=== PATIENT | female | born 1955 | race African-American/Black ===

== ENCOUNTER 2017-03-05 09:11 | Emergency (ER) | payer OTHER ==
--- NOTE | 2017-03-05 09:23 | PDOC ---
History of Present Illness - General Stated Complaint: RECTAL BLEED Time Seen by Provider: 03/05/17 09:22 - History of Present Illness Initial Comments: 03/05/17 09:22 Ms. Seth is a 61 yo female with a significant past medical history of occasional HTN who presents to the emergency department following a single episode of bloody diarrhea. She reports this is the first time this has ever happened and that she is currently experiencing no pain. Reports the stool was loose with red blood intermixed. The patient denies chest pain, shortness of breath, headache and dizziness. Denies fever, chills, nausea, vomit, and constipation. Denies dysuria, frequency , urgency and hematuria. Allergies: NKDA Past surgical history: Denies Past History - Past Medical History Allergies/Adverse Reactions: Allergies Allergy/AdvReac Type Severity Reaction Status Date / Time No Known Allergies Allergy Verified 03/05/17 09:33 Home Medications: Ambulatory Orders No Known Home Medication 03/05/17 Review of Systems - Review of Systems Comments:: 03/05/17 09:23 GENERAL/CONSTITUTIONAL: No fever or chills. No weakness. HEAD, EYES, EARS, NOSE AND THROAT: No change in vision. No ear pain or discharge. No sore throat. CARDIOVASCULAR: No chest pain or shortness of breath RESPIRATORY: No cough, wheezing, or hemoptysis. GASTROINTESTINAL: +Diarrhea with red blood mixed in. No nausea, no vomiting, or constipation. GENITOURINARY: No dysuria, frequency, or change in urination. MUSCULOSKELETAL: No joint or muscle swelling or pain. No neck or back pain. SKIN: No rash NEUROLOGIC: No headache, vertigo, loss of consciousness, or change in strength/ sensation. ENDOCRINE: No increased thirst. No abnormal weight change HEMATOLOGIC/LYMPHATIC: No anemia, easy bleeding, or history of blood clots. ALLERGIC/IMMUNOLOGIC: No hives or skin allergy. *Physical Exam - Physical Exam Comments: 03/05/17 09:23 GENERAL: Awake, alert, and fully oriented, in no acute distress HEAD: No signs of trauma, normocephalic, atraumatic EYES: PERRLA, EOMI, sclera anicteric, conjunctiva clear ENT: Auricles normal inspection, hearing grossly normal, nares patent, oropharynx clear without exudates. Moist mucosa NECK: Normal ROM, supple, no lymphadenopathy, JVD, or masses LUNGS: No distress, speaks full sentences, clear to auscultation bilaterally HEART: Regular rate and rhythm, normal S1 and S2, no murmurs, rubs or gallops, peripheral pulses normal and equal bilaterally. ABDOMEN: Soft, nontender, normoactive bowel sounds. No guarding, no rebound. No masses EXTREMITIES: Normal inspection, Normal range of motion, no edema. No clubbing or cyanosis. NEUROLOGICAL: Cranial nerves II through XII grossly intact. Normal speech, normal gait, no focal sensorimotor deficits SKIN: Warm, Dry, normal turgor, no rashes or lesions noted. ED Treatment Course - LABORATORY CBC & Chemistry Diagram: 03/05/17 10:00 03/05/17 10:00 Medical Decision Making - Medical Decision Making 03/05/17 10:15 Patient had bowel movement examined by physician while in ER. Small amount, brown, with minimal dark red blood associated/mixed with stool. No blood in water of bowl. Rectal exam negative for hemmorhoids but small amount of bloody material noted on glove with postive stool for occult blood. Patient currently resting comfortably with grossly normal labs as below. Will follow-up outpatient this week. Advised to return if any exacerbation of symptoms, pain, or other concerning developments. *DC/Admit/Observation/Transfer Diagnosis at time of Disposition: Blood in stool - Discharge Dispostion Disposition: HOME - Referrals Referrals: Trever Alcantara MD [Primary Care Provider] - Mason Mccord DO [Staff Physician] - - Patient Instructions Printed Discharge Instructions: DI for Rectal Bleeding
[2017-03-05 09:33] VITALS: PULSE 80; TEMP 98.3; BMI 26.6
[2017-03-05 10:14] LABS: BASOPHIL 1.3 % (0-2.0); EOSINOPHIL 2.5 % (0-4.5); MCHC 32.7 g/dl (32.0-36.0); MEAN CELL VOLUME 100.8 fl (80-96); MEAN PLT VOLUME 8.5 fl (7.5-11.1); NEUTROPHILS 49.5 % (42.8-82.8); PLATELET COUNT 242 K/MM3 (134-434); RDW 13.2 % (11.6-15.6); WHITE BLOOD COUNT 5.3 K/mm3 (4.0-10.0)
--- NOTE | 2017-03-05 10:30 | PDOC ---
Attending Attestation - Resident Resident Name: Delvin Villanueva - ED Attending Attestation I have performed the following: I have examined & evaluated the patient, The case was reviewed & discussed with the resident, I agree w/resident's findings & plan, Exceptions are as noted - HPI HPI: 03/05/17 10:27 61y F hx of htn (now controlled w/o meds) presents with compaint of rectal bleeding. pt notes that she had 2 bms that had blood mixed with stool, no melena, abd pain, fever/chills, cp, sob, dizziness. on exam pt appears well, with a soft nontender abdomen. no a/c use beside occaisonal motrin suspect LGIB - exact cause unclear - ?diverticular vs. internal hemorroid will obtain stool guaiac, labs/hbg will reassess if no further blood bms, or minimal blood, and hbg normal, will dc with GI fu 03/05/17 10:45 pts labs reviewed and is unremarkable although her guaiac pwas positive bun also normal pt had a bm here that was mostly brown but had some redness on the lateral aspect - suspect possible internal hemorroid will have pt fu with GI return precautions were discussed - Physicial Exam PE: 03/05/17 18:47 see abve - Medical Decision Making 03/05/17 18:47 see above
[2017-03-05 10:34] LABS: ALBUMIN 3.1 g/dl (3.4-5.0); ALK PHOS 82 U/L (45-117); ANION GAP 4 (8-16); BILIRUBIN,TOTAL 0.6 mg/dL (0.2-1.0); CALCIUM 8.4 mg/dL (8.5-10.1); CO2 27 mmol/L (21-32); CREATININE 1.2 mg/dL (0.55-1.02); GLUCOSE,RANDOM 124 mg/dL (74-106); SGPT/ALT 30 U/L (12-78); TOT PROT 7.2 g/dl (6.4-8.2)
[2017-03-05 10:39] LABS: SGOT/AST 37 U/L (15-37)
[2017-03-05 11:15] VITALS: BP 130/90
== END 2017-03-05 11:15 | disposition home or self-care (01) ==
LOC: JER 09:11
DX: K92.1 Melena (principal); I10 Essential (primary) hypertension
CPT/HCPCS: 36415; 80053; 82272; 85025; 99282-25

== ENCOUNTER 2017-03-10 10:10 | Emergency (ER) | payer OTHER ==
--- NOTE | 2017-03-10 10:22 | PDOC ---
History of Present Illness <Slade Coleman - Last Filed: 03/10/17 11:12> - General History Source: Patient Exam Limitations: No Limitations - History of Present Illness Initial Comments: 03/10/17 10:56 03/10/17 10:59 Patient is a 61 year old female with PMHx of HTN and asthma who presents with BRBPR today. She reports diarrhea mixed with dark red stool. She also notes dime sized clots in the toilet bowl. Patient was evaluated in the ED last week for a similar episode. She had a positive occult stool at that time and was referred to GI but has not been able to get an appointment. She has never had a colonoscopy before and denies any family history of colon cancer. She also denies any history of hemorrhoids. Patient denies any rectal pain, abdominal pain, nausea, vomiting, constipation, dysuria, urinary frequency, fevers, chills , lightheadedness, or weight loss. 03/10/17 11:04 <Poncho Garcia - Last Filed: 03/10/17 12:39> - General Chief Complaint: Rectal Bleed Stated Complaint: BLOOD IN STOOL Time Seen by Provider: 03/10/17 10:17 Past History <Slade Coleman - Last Filed: 03/10/17 11:12> - Past Medical History Asthma: Yes (Inhalers as needed) HTN: Yes (No Pharmacologic RX) - Suicide/Smoking/Psychosocial Hx Smoking History: Current every day smoker Number of Cigarettes Smoked Daily: 7 Hx Alcohol Use: Yes Drug/Substance Use Hx: No <Poncho Garcia - Last Filed: 03/10/17 12:39> - Past Medical History Allergies/Adverse Reactions: Allergies Allergy/AdvReac Type Severity Reaction Status Date / Time No Known Allergies Allergy Verified 03/10/17 10:49 Home Medications: Ambulatory Orders No Known Home Medication 03/05/17 Review of Systems - Review of Systems Able to Perform ROS?: Yes Is the patient limited Tajik proficient: No Constitutional: No: Chills, Fever, Unintentional Wgt. Loss HEENTM: No: Symptoms Reported, Blurred Vision, Double Vision Respiratory: No: Shortness of Breath Cardiac (ROS): No: Chest Pain, Lightheadedness ABD/GI: Yes: Diarrhea, Rectal Bleeding. No: Abd. Pain w/ defecation, Constipated, Nausea, Vomiting : No: Dysuria, Frequency Musculoskeletal: No: Back Pain Integumentary: No: Pallor, Rash Neurological: No: Headache, Dizziness Psychiatric: No: Anxiety, Depression Endocrine: No: Symptoms Reported Hematologic/Lymphatic: No: Anemia All Other Systems: Reviewed and Negative <Poncho Garcia - Last Filed: 03/10/17 12:39> *Physical Exam - Vital Signs Last Vital Signs Temp Pulse Resp BP Pulse Ox 97.8 F 87 18 141/79 99 03/10/17 10:10 03/10/17 10:10 03/10/17 10:10 03/10/17 10:10 03/10/17 10:10 <Slade Coleman - Last Filed: 03/10/17 11:12> - Physical Exam Comments: 03/10/17 11:06 Pt is a 61 yo female with HTN and asthma who presents for an episode of BRBPR General Appearance: Yes: Appropriately Dressed. No: Apparent Distress HEENT: positive: Normal ENT Inspection. negative: Pale Conjunctivae Neck: positive: Supple. negative: Tender Respiratory/Chest: positive: Lungs Clear, Normal Breath Sounds Cardiovascular: positive: Regular Rhythm, Regular Rate. negative: Murmur Gastrointestinal/Abdominal: positive: Normal Bowel Sounds, Flat, Soft. negative : Tender Rectal Exam: positive: heme positive stool Extremity: positive: Normal Capillary Refill Integumentary: positive: Warm. negative: Pale, Diaphoresis Neurologic: positive: Fully Oriented, Alert <Poncho Garcia - Last Filed: 03/10/17 12:39> Heart Score/ECG Review #1 03/10/17 11:12 Normal Sinus rhythm Normal ECG Vent rate 76 bpm AL interval 158 ms QRS duration 88 ms QT/QTc 402/452 ms P-R-T axes 19 65 81 <Slade Coleman - Last Filed: 03/10/17 11:12> ED Treatment Course - LABORATORY CBC & Chemistry Diagram: 03/10/17 11:17 03/10/17 11:17 <Poncho Garcia - Last Filed: 03/10/17 12:39> Medical Decision Making - Medical Decision Making 03/10/17 11:07 Pt is a 61 yo female with PMHx of HTN, controlled without medications and asthma who presents for an episode of BRBPR. She was seen here approximately a week ago for a similar episode Had a positive occult stool at that time but all other lab work was negative She was referred to GI but has not followed up On exam today, patient's stool is heme positive. Abd is soft and nontender. Labs ordered EKG obtained and is negative No imaging necessary at this point, as patient's abd is soft and nontender Will refer patient to Dr. Gael Green for GI follow up and possible colonoscopy <Poncho Garcia - Last Filed: 03/10/17 12:39> *DC/Admit/Observation/Transfer <Slade Coleman - Last Filed: 03/10/17 11:12> - Discharge Dispostion Admit: No <Poncho Garcia - Last Filed: 03/10/17 12:39> Diagnosis at time of Disposition: Blood in stool, Hematochezia - Discharge Dispostion Disposition: HOME Condition at time of disposition: Unchanged/Unknown - Referrals Referrals: Gael Green MD [Staff Physician] - - Patient Instructions Printed Discharge Instructions: DI for Rectal Bleeding Additional Instructions: Return to us if any problems or bleeding becomes more intense. What you really need next is to see GI. Call Dr. Barry's office in the morning on Saturday to hopefully get an appointment this week. Sorry this is happening to you Rosalee- Hopefully you can see GI in a day or two. Best- Dr. Poncho Garcia - Post Discharge Activity Forms/Work/School Notes: Back to Work
[2017-03-10 10:49] VITALS: PULSE 87; TEMP 97.8; BMI 18.8
[2017-03-10 11:25] LABS: BASOPHIL 0.5 % (0-2.0); EOSINOPHIL 2.7 % (0-4.5); MCH 32.7 pg (25.7-33.7); MCHC 32.7 g/dl (32.0-36.0); MEAN CELL VOLUME 100.2 fl (80-96); MEAN PLT VOLUME 8.2 fl (7.5-11.1); NEUTROPHILS 54.7 % (42.8-82.8); PLATELET COUNT 238 K/MM3 (134-434); WHITE BLOOD COUNT 5.6 K/mm3 (4.0-10.0)
[2017-03-10 11:41] LABS: INR 0.96 (0.82-1.09); PROTHROMBIN TIME (PATIENT) 10.6 SEC (9.98-11.88)
[2017-03-10 11:47] LABS: ALBUMIN 3.3 g/dl (3.4-5.0); ANION GAP 7 (8-16); CALCIUM 9.2 mg/dL (8.5-10.1); CO2 27 mmol/L (21-32); CREATININE 1.3 mg/dL (0.55-1.02); GLUCOSE,RANDOM 84 mg/dL (74-106); SGOT/AST 21 U/L (15-37); SGPT/ALT 29 U/L (12-78)
[2017-03-10 11:48] VITALS: BP 167/85
[2017-03-10 11:48] LABS: ALK PHOS 87 U/L (45-117); BILIRUBIN,TOTAL 0.5 mg/dL (0.2-1.0); TOT PROT 7.4 g/dl (6.4-8.2)
--- NOTE | 2017-03-10 15:25 | EKG ---
Test Reason : Blood Pressure : / mmHG Vent. Rate : 076 BPM Atrial Rate : 076 BPM P-R Int : 158 ms QRS Dur : 088 ms QT Int : 402 ms P-R-T Axes : 019 065 081 degrees QTc Int : 452 ms NORMAL SINUS RHYTHM RIGHT AXIS DEVIATION PROBABLE EARLY REPOLARIZATION PAATTERN IN II III aVF T WAVE INVERSIONS IN aVL AND V2 NO PREVIOUS ECGS AVAILABLE REPEAT EKG IF CLINICALLY INDICATED Confirmed by JENI LAZAR MD ([id number]) on 03/10/2017 3:24:52 PM Referred By: Confirmed By:JENI LAZAR MD
== END 2017-03-10 12:55 | disposition home or self-care (01) ==
LOC: JER 10:10
DX: K92.1 Melena (principal); R19.5 Other fecal abnormalities; I10 Essential (primary) hypertension; J45.909 Unspecified asthma, uncomplicated
CPT/HCPCS: 36415; 80053; 82272; 85025; 85610; 86850; 86900; 86901; 93005; 93010; 99282-25

== ENCOUNTER 2017-03-26 10:09 | Day surgery (SDC) | payer OTHER ==
[2017-03-26 10:37] VITALS: TEMP 98.1; BMI 26.6
[2017-03-26] MEDS ORDERED: PROPOFOL 20 ML ONE ×2 (11:27)
--- NOTE | 2017-03-26 11:32 | PROC ---
Endoscopy Procedure Endoscopy procedure completed. Please see scanned procedure report.
[2017-03-26 12:10] VITALS: BP 165/82; PULSE 72
== END 2017-03-26 12:10 | disposition home or self-care (01) ==
LOC: JASU-ENDO 10:09
PROVIDERS: ATTEND Internal Medicine Gastroenterology
PROC: 0DJD8ZZ Inspection of Lower Intestinal Tract, Via Natural or Artificial Opening Endoscopic (ICD-10-PCS; principal; 2017-03-26 10:00)
DX: K57.30 Diverticulosis of large intestine without perforation or abscess without bleeding (principal); K92.1 Melena; K64.8 Other hemorrhoids

== ENCOUNTER 2024-06-06 15:30 | Inpatient (IN) | payer OTHER ==
[2024-06-06] MEDS: ACETAMINOPHEN 1000 MG/100 ML BAG IVPB ONE (18:01)
[2024-06-06] MEDS ORDERED: ACETAMINOPHEN INJECTION 100 ML ONE (18:02)
[2024-06-06 18:05] LABS: BASO % 0.1 % (0-2.0); HEMATOCRIT 34.7 % (32.4-45.2); LYMPH % 3.6 % (8-40); MCH 31.1 pg (25.7-33.7); MCHC 31.8 g/dl (32.0-36.0); MEAN CELL VOLUME 97.9 fl (80-96); MEAN PLT VOLUME 7.7 fl (7.5-11.1); NEUT % 92.3 % (42.8-82.8); PLATELET COUNT 412 10^3/uL (134-434); RBC 3.54 M/mm3 (3.60-5.2); RDW 13.9 % (11.6-15.6); WHITE BLOOD COUNT 24.3 K/mm3 (4.0-10.0)
[2024-06-06] MEDS: SODIUM CHLORIDE 0.9% 500 ML INFUS.BAG IV ONE (18:12)
[2024-06-06 18:27] LABS: ALBUMIN 2.2 g/dl (3.4-5.0); CALCIUM 8.8 mg/dL (8.5-10.1)
[2024-06-06 18:28] LABS: BLOOD UREA NITROGEN 63.9 mg/dL (7-18)
[2024-06-06 18:31] LABS: CREATININE 3.4 mg/dL (0.55-1.3)
[2024-06-06 18:32] LABS: BILIRUBIN,TOTAL 0.6 mg/dL (0.2-1); TOT PROT 7.5 g/dl (6.4-8.2)
[2024-06-06 18:45] LABS: ANISOCYTOSIS 1+; MACROCYTOSIS 1+
[2024-06-06] MEDS ORDERED: PIPERACILLIN/TAZOB 3.375 GM 3.375 GM/50 ML BAG IVPB ONE (20:51)
[2024-06-06] MEDS: PIPERACILLIN/TAZOB 3.375 GM 3.375 GM in DEXTROSE 5%-WATER - 50 ML IVPB ONE (20:55)
[2024-06-06 21:05] LABS: EPI CELLS >36 /uL (0-25.1); HYALINE CASTS 4 /uL (0-3.1); URINE APPEARANCE TURBID; URINE BILIRUBIN NEGATIVE (NEGATIVE); URINE COLOR YELLOW; URINE GLUCOSE (UA) NEGATIVE (NEGATIVE); URINE KETONE NEGATIVE (NEGATIVE); URINE LEUK ESTERASE 2+ (NEGATIVE); URINE NITRITE NEGATIVE (NEGATIVE); URINE PROTEIN 3+ (NEGATIVE); URINE RBC 383 /uL (0-23.9); URINE WBC 1791 /uL (0-25.8)
[2024-06-06 21:18] LABS: URINE BACTERIA 47.6 /uL (0-1359)
[2024-06-06] MEDS: LACTATED RINGERS SOLUTION 1,000 ML/1,000 ML INFUS.BAG IV SCH (22:39)
[2024-06-07] MEDS: SODIUM CHLORIDE 1,000 ML IV STA ×2 (00:28→11:11)
[2024-06-07] MEDS ORDERED: ACETAMINOPHEN 1000 MG/100 ML BAG IVPB PRN (01:00)
[2024-06-07] MEDS ORDERED: PIPERACILLIN/TAZOB 2.25 GM 2.25 GM/50 ML BAG IVPB ONE ×4 (02:29→21:12)
[2024-06-07] MEDS: PIPERACILLIN/TAZOB 2.25 GM 2.25 GM in DEXTROSE 5%-WATER - 50 ML IVPB SCH (02:35)
[2024-06-07 07:19] LABS: HEMATOCRIT 30.9 % (32.4-45.2); HEMOGLOBIN 9.5 GM/dL (10.7-15.3); MCH 30.9 pg (25.7-33.7); MCHC 30.8 g/dl (32.0-36.0); MEAN CELL VOLUME 100.3 fl (80-96); MEAN PLT VOLUME 8.1 fl (7.5-11.1); PLATELET COUNT 349 10^3/uL (134-434); RBC 3.08 M/mm3 (3.60-5.2); RDW 13.5 % (11.6-15.6); WHITE BLOOD COUNT 29.7 K/mm3 (4.0-10.0)
[2024-06-07 07:26] LABS: POTASSIUM 4.8 mmol/L (3.5-5.1)
[2024-06-07 07:28] LABS: CALCIUM 8.2 mg/dL (8.5-10.1)
[2024-06-07 07:29] LABS: ALBUMIN 1.9 g/dl (3.4-5.0); BLOOD UREA NITROGEN 63.5 mg/dL (7-18); MAGNESIUM 1.5 mg/dL (1.8-2.4)
[2024-06-07 07:32] LABS: CREATININE 3.5 mg/dL (0.55-1.3); PHOSPHOROUS 6.1 mg/dL (2.5-4.9)
[2024-06-07 07:33] LABS: BILIRUBIN,TOTAL 0.6 mg/dL (0.2-1); TOT PROT 6.5 g/dl (6.4-8.2)
[2024-06-07] MEDS ORDERED: MAGNESIUM OXIDE 400 MG TABLET (FP) ONE (09:28)
[2024-06-07] MEDS ORDERED: HEPARIN NA (PORCINE) 5,000 UNITS/ML 1ML VIAL ONE ×2 (09:29→22:53)
[2024-06-07] MEDS: HEPARIN NA (PORCINE) 5,000 UNITS/ML 1ML VIAL SQ SCH (09:33)
[2024-06-07] MEDS: MAGNESIUM OXIDE 400 MG TABLET (FP) PO ONE (09:33)
[2024-06-07 10:11] LABS: ANISOCYTOSIS 0; HELMET CELLS 0; HOWELL-JOLLY BODIES 0; MACROCYTOSIS 0; OVALOCYTE 0; ROULEAU 0; SICKELED CELLS 0; TARGET CELLS 0; TEAR DROP CELLS 0; TOXIC GRANULATION 0
[2024-06-07 20:22] LABS: POTASSIUM 4.5 mmol/L (3.5-5.1)
[2024-06-07 20:24] LABS: ALBUMIN 1.8 g/dl (3.4-5.0); CALCIUM 8.5 mg/dL (8.5-10.1)
[2024-06-07 20:46] LABS: CREATININE 3.1 mg/dL (0.55-1.3)
[2024-06-07 20:48] LABS: BILIRUBIN,TOTAL 0.4 mg/dL (0.2-1); TOT PROT 6.3 g/dl (6.4-8.2)
[2024-06-07] MEDS: VANCOMYCIN ORAL SOLUTION 125 MG/2.5 ML PO SCH (21:21)
[2024-06-08] MEDS ORDERED: PIPERACILLIN/TAZOB 2.25 GM 2.25 GM/50 ML BAG IVPB ONE ×4 (04:43→20:05)
[2024-06-08 07:40] LABS: HEMATOCRIT 26.1 % (32.4-45.2); HEMOGLOBIN 8.4 GM/dL (10.7-15.3); MCH 31.4 pg (25.7-33.7); MCHC 32.3 g/dl (32.0-36.0); MEAN CELL VOLUME 97.1 fl (80-96); MEAN PLT VOLUME 8.3 fl (7.5-11.1); PLATELET COUNT 289 10^3/uL (134-434); RBC 2.69 M/mm3 (3.60-5.2); RDW 13.3 % (11.6-15.6); WHITE BLOOD COUNT 19.4 K/mm3 (4.0-10.0)
[2024-06-08 07:54] LABS: POTASSIUM 3.9 mmol/L (3.5-5.1)
[2024-06-08 08:06] LABS: ALBUMIN 1.6 g/dl (3.4-5.0); CALCIUM 7.8 mg/dL (8.5-10.1); MAGNESIUM 1.7 mg/dL (1.8-2.4)
[2024-06-08 08:07] LABS: BLOOD UREA NITROGEN 52.3 mg/dL (7-18)
[2024-06-08 08:09] LABS: CREATININE 2.6 mg/dL (0.55-1.3)
[2024-06-08 08:10] LABS: BILIRUBIN,TOTAL 0.3 mg/dL (0.2-1); PHOSPHOROUS 4.3 mg/dL (2.5-4.9)
[2024-06-08 08:11] LABS: TOT PROT 5.5 g/dl (6.4-8.2)
[2024-06-08] MEDS ORDERED: MAGNESIUM SULFATE IN WATER 2 GM/50 ML IVPB IVPB ONE (13:25)
[2024-06-08] MEDS: MAGNESIUM 1GM/D5W - 1 GM/100 ML IVPB IVPB ONE (13:34)
[2024-06-09] MEDS ORDERED: PIPERACILLIN/TAZOB 2.25 GM 2.25 GM in DEXTROSE 5%-WATER - 50 ML IVPB SCH (03:00)
[2024-06-09 03:42] VITALS: BMI 24.7
[2024-06-09 09:47] LABS: BASO % 0.2 % (0-2.0); EOS % 0.9 % (0-4.5); HEMATOCRIT 25.7 % (32.4-45.2); HEMOGLOBIN 8.2 GM/dL (10.7-15.3); LYMPH % 12.8 % (8-40); MCH 31.1 pg (25.7-33.7); MEAN PLT VOLUME 7.9 fl (7.5-11.1); MONO % 7.9 % (3.8-10.2); NEUT % 78.2 % (42.8-82.8); PLATELET COUNT 293 10^3/uL (134-434); RBC 2.65 M/mm3 (3.60-5.2); RDW 13.8 % (11.6-15.6); WHITE BLOOD COUNT 11.2 K/mm3 (4.0-10.0)
[2024-06-09 09:50] VITALS: RESP 18
[2024-06-09] MEDS: CEFTRIAXONE 2 GM-D5W BAG 2 GM/50 ML BAG IVPB SCH (10:02)
[2024-06-09 10:07] LABS: POTASSIUM 3.9 mmol/L (3.5-5.1)
[2024-06-09 10:14] LABS: CALCIUM 8.1 mg/dL (8.5-10.1)
[2024-06-09 10:16] LABS: ALBUMIN 1.6 g/dl (3.4-5.0)
[2024-06-09 10:17] LABS: CREATININE 2.1 mg/dL (0.55-1.3)
[2024-06-09 10:18] LABS: BILIRUBIN,TOTAL 0.3 mg/dL (0.2-1)
[2024-06-09 10:19] LABS: TOT PROT 5.6 g/dl (6.4-8.2)
[2024-06-09] MEDS ORDERED: ONDANSETRON 4 MG/2 ML VIAL IVPUSH PRN (18:17)
[2024-06-10 11:48] LABS: BASO % 0.3 % (0-2.0); EOS % 0.7 % (0-4.5); HEMATOCRIT 28.5 % (32.4-45.2); HEMOGLOBIN 8.9 GM/dL (10.7-15.3); LYMPH % 14.6 % (8-40); MCH 30.8 pg (25.7-33.7); MCHC 31.3 g/dl (32.0-36.0); MEAN CELL VOLUME 98.5 fl (80-96); MONO % 10.7 % (3.8-10.2); NEUT % 73.7 % (42.8-82.8); PLATELET COUNT 307 10^3/uL (134-434); RDW 13.6 % (11.6-15.6); WHITE BLOOD COUNT 11.1 K/mm3 (4.0-10.0)
[2024-06-10 11:55] VITALS: BP 180/79; PULSE 83; TEMP 98.6
[2024-06-10 12:09] LABS: POTASSIUM 3.8 mmol/L (3.5-5.1)
[2024-06-10 12:14] LABS: ALBUMIN 1.7 g/dl (3.4-5.0); BLOOD UREA NITROGEN 30.2 mg/dL (7-18)
[2024-06-10 12:15] LABS: MAGNESIUM 1.7 mg/dL (1.8-2.4)
[2024-06-10 12:18] LABS: CREATININE 1.7 mg/dL (0.55-1.3)
[2024-06-10 12:19] LABS: BILIRUBIN,TOTAL 0.4 mg/dL (0.2-1); TOT PROT 5.8 g/dl (6.4-8.2)
[2024-06-10] MEDS: MAGNESIUM OXIDE 400 MG TABLET (FP) PO ONE (13:08)
[2024-06-10] MEDS: MAGNESIUM 2GM/50ML STERILE WATER IVPB IVPB ONE (13:59)
== END 2024-06-10 13:59 | disposition home or self-care (01) | DRG 372 ==
LOC: JER 15:30 → JERBED 22:32 → OBSVTOIN 06-07 08:01 → J8W 06-09 03:25
PROVIDERS: ADMIT Internal Medicine; ATTEND Nurse Practitioner Acute Care
DX: A04.72 Enterocolitis due to Clostridium difficile, not specified as recurrent (principal); I24.89 Other forms of acute ischemic heart disease; K57.32 Diverticulitis of large intestine without perforation or abscess without bleeding; N17.9 Acute kidney failure, unspecified; R73.03 Prediabetes; I12.9 Hypertensive chronic kidney disease with stage 1 through stage 4 chronic kidney disease, or unspecified chronic kidney disease; N18.9 Chronic kidney disease, unspecified; J45.909 Unspecified asthma, uncomplicated; F17.200 Nicotine dependence, unspecified, uncomplicated; R10.9 Unspecified abdominal pain
CPT/HCPCS: 36415; 71045-TC-FY; 74176-TC; 76775-TC; 80048; 80053; 81003; 82436; 82570; 83690; 83735; 83935; 84100; 84133; 84300; 84484; 85025; 85027; 86140; 87045; 87046; 87086; 87186; 87324; 87449; 87493; 87798; 93005; 93010; 99285-25; G0378; J0131; J1644